=== PATIENT | female | born 1995 | race Caucasian/White ===

== ENCOUNTER 2017-01-25 20:39 | Emergency (ER) | payer OTHER ==
[2017-01-25 20:39] VITALS: BMI 21.0
[2017-01-25 21:01] VITALS: BP 107/62; PULSE 70; RESP 18; TEMP 98.4; O2SAT 97
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
[2017-01-25] MEDS ORDERED: Silver Sulfadiazine 1% Cream (20 gm) ONE (21:34)
[2017-01-25] MEDS ORDERED: Silver Sulfadiazine 1% Cream (20 gm) TOP STA (21:36)
== END 2017-01-25 22:00 | disposition home or self-care (01) ==
LOC: C.ER 20:39
DX: T23.132A Burn of first degree of multiple left fingers (nail), not including thumb, initial encounter (principal); T23.131A Burn of first degree of multiple right fingers (nail), not including thumb, initial encounter; X10.2XXA Contact with fats and cooking oils, initial encounter; Y93.G3 Activity, cooking and baking

== ENCOUNTER 2017-05-18 22:44 | Emergency (ER) | payer OTHER ==
[2017-05-18 22:44] VITALS: BMI 21.0
[2017-05-18 22:57] VITALS: BP 99/74; PULSE 88; RESP 18; TEMP 97.9; O2SAT 99
[2017-05-18 23:37] LABS: RBC URINE 22 /hpf (0-3); URINE BILIRUBIN NEGATIVE (NEGATIVE); URINE BLOOD 2+ (NEGATIVE); URINE COLOR Yellow (YELLOW); URINE GLUCOSE (UA) NORMAL (Normal); URINE KETONE NEGATIVE (NEGATIVE); URINE LEUKOCYTE ESTERASE 2+ Leu/uL (Negative); URINE PROTEIN NEGATIVE (NEGATIVE); URINE UROBILINOGEN NORMAL mg/dL (0.2-1.0); WBC URINE 7 /hpf (0-5)
--- NOTE | 2017-05-18 23:53 | C.PDOC ---
History Of Present Illness 21 yo female c/o vaginal itching and swelling for three days. PT notes she was told to use a suppository to "prevent infection" which she bought at the local drug store. She states she was not having any symptoms at the time though was finishing her menstruation. She used the suppository and shortly after she felt itching and swelling vaginally. (+) sexual active- does not use protection . Received the Depo shot 3+ months ago. Denies fever, rash, dysuria, urinary frequency, vaginal discharge, abdominal pain, sob, difficulty swallowing or h/o STD. Time Seen by Provider: 05/18/17 22:48 Chief Complaint (Nursing): Female Genitourinary History Per: Patient History/Exam Limitations: no limitations Onset/Duration Of Symptoms: Days Current Symptoms Are (Timing): Still Present Past Medical History Vital Signs: Last Vital Signs Temp 97.9 F 05/18/17 22:54 Pulse 88 05/18/17 22:54 Resp 18 05/18/17 22:54 BP 99/74 L 05/18/17 22:54 Pulse Ox 99 05/18/17 23:53 Family History: States: Unknown Family Hx, Diabetes - Social History Hx Tobacco Use: No Hx Alcohol Use: No Hx Substance Use: No - Immunization History Hx Tetanus Toxoid Vaccination: Yes Hx Influenza Vaccination: No Hx Pneumococcal Vaccination: No Review Of Systems Except As Marked, All Systems Reviewed And Found Negative. Genitourinary: Positive for: Vaginal Bleeding Physical Exam - Physical Exam Appears: Well, Non-toxic, No Acute Distress Skin: Normal Color, Warm, Dry Head: Atraumatic, Normacephalic Eye(s): bilateral: Normal Inspection, EOMI Nose: Normal Oral Mucosa: Moist Neck: Normal, Normal ROM, Supple Chest: Symmetrical Respiratory: No Accessory Muscle Use Gastrointestinal/Abdominal: Normal Exam, Soft, No Tenderness Back: Normal Inspection, No CVA Tenderness, No Vertebral Tenderness Pelvic: No Normal External Exam ((+) labia swelling and excoriation, no rash or ulceration), No Vaginal Discharge, No Cervical Motion Tenderness, No Adnexal Tenderness Extremity: Normal ROM Neurological/Psych: Oriented x3, Normal Speech ED Course And Treatment O2 Sat by Pulse Oximetry: 99 Progress Note: Pt treated with Benadryl. Case discussed with Dr Christie, agreed upon plan and treatment. Pt instructed to follow up with [employer] [employer] in 1-2 days. REturn to ER if symtpoms persist or worsen. Disposition - Disposition Disposition: HOME/ ROUTINE Disposition Time: 23:51 Condition: STABLE Additional Instructions: Follow up with your primary medical doctor or clinic in 2-5 days for further evaluation. Take medications as prescribed. Return to the emergency department at any time if symptoms persist or worsen. Prescriptions: Clotrimazole/Betamethasone [Lotrisone] 15 gm EXT BID 5 Days tube DiphenhydrAMINE [Benadryl] 25 mg PO Q6 #20 cap Instructions: General Allergic Reaction (ED) Forms: [employer] (Marshallese) - Clinical Impression Clinical Impression: Vulvitis
== END 2017-05-19 00:02 | disposition home or self-care (01) ==
LOC: C.ER 22:44
DX: N76.2 Acute vulvitis (principal)

== ENCOUNTER 2017-12-11 20:50 | Emergency (ER) | payer SELFPAY ==
[2017-12-11 20:50] VITALS: BMI 21.0
[2017-12-11 20:58] VITALS: O2SAT 98
[2017-12-11 21:47] VITALS: BP 100/68; PULSE 110; RESP 16; TEMP 99.9
--- NOTE | 2017-12-11 21:51 | C.PDOC ---
History Of Present Illness 22 y/o female c/o throat pain and fever x 1 days with ear pain as well. pt sts she swam in [place] recently. no cough. pt not taking analgesics/antipyretics at home. Time Seen by Provider: 12/11/17 21:04 Chief Complaint (Nursing): ENT Problem History Per: Patient History/Exam Limitations: None Onset/Duration Of Symptoms: Days (1) Current Symptoms Are (Timing): Still Present Quality (Mouth/Throat): Tenderness, Redness Symptoms Have Been: Continuous Severity: Moderate Anticoagulant/Antiplatlet Use?: No Past Medical History Reviewed: Historical Data, Nursing Documentation, Vital Signs Vital Signs: Last Vital Signs Temp 99.9 F H 12/11/17 21:42 Pulse 110 H 12/11/17 21:42 Resp 16 12/11/17 21:42 BP 100/68 12/11/17 21:42 Pulse Ox 98 12/11/17 22:00 - Medical History PMH: No Chronic Diseases Family History: States: Unknown Family Hx, Diabetes - Social History Hx Tobacco Use: No Hx Alcohol Use: No Hx Substance Use: No - Immunization History Hx Tetanus Toxoid Vaccination: Yes Hx Influenza Vaccination: No Hx Pneumococcal Vaccination: No Review Of Systems Constitutional: Positive for: Fever, Chills ENT: Positive for: Ear Pain, Mouth Pain, Mouth Swelling Cardiovascular: Negative for: Chest Pain Respiratory: Negative for: Cough Gastrointestinal: Negative for: Vomiting, Abdominal Pain Skin: Negative for: Rash Neurological: Negative for: Weakness, Numbness Physical Exam - Physical Exam Appears: Non-toxic, No Acute Distress Skin: Warm, Dry Head: Atraumatic, Normacephalic Eye(s): bilateral: Normal Inspection Nose: No Discharge Oral Mucosa: Moist Tongue: Normal Appearing, No Swelling Lips: Normal Appearing, No Swelling Throat: Erythema, Exudate (left tonsil), No Drooling Neck: Supple Lymphatic: Adenopathy Chest: No Deformity, No Tenderness Cardiovascular: Rhythm Regular (tachycardic) Respiratory: No Decreased Breath Sounds, No Wheezing Gastrointestinal/Abdominal: Soft, No Tenderness Neurological/Psych: Oriented x3, Normal Speech, Normal Cognition ED Course And Treatment - Laboratory Results Urine POC: Negative O2 Sat by Pulse Oximetry: 98 Medical Decision Making Medical Decision Making: pt with exudative tonsillitis and temp 103, d/c home with zpak Disposition Counseled Patient/Family Regarding: Diagnosis, Need For Followup, Rx Given - Disposition Referrals: Non [facility] Provider, [Primary Care Provider] - Disposition: HOME/ ROUTINE Disposition Time: 21:54 Condition: GOOD Additional Instructions: Drink increased fluids. Gargle with warm salty water several times a day. Tylenol for fever or pain Take antibiotics as prescribed. Prescriptions: Azithromycin [Zithromax] 250 mg PO DAILY #4 tab Instructions: Sore Throat, Adult (DC) Forms: [employer] (Sinhala), Gen Discharge Inst Sinhala Print Language: VIETNAMESE - Clinical Impression Clinical Impression: Exudative tonsillitis
== END 2017-12-11 22:07 | disposition home or self-care (01) ==
LOC: SUPCPDRO 20:50 → C.ER 20:50
DX: J03.90 Acute tonsillitis, unspecified (principal)

== ENCOUNTER 2018-11-02 14:38 | Emergency (ER) | payer SELFPAY ==
[2018-11-02 14:39] VITALS: BMI 21.0
[2018-11-02 14:49] VITALS: BP 110/64; PULSE 66; RESP 18; TEMP 99.1; O2SAT 98
--- NOTE | 2018-11-02 15:26 | C.PDOC ---
History Of Present Illness 23 y/o female pt presents to the ER c/o left ankle pain and swelling for x2 days. Pt reports that she twist her left ankle x2 days ago. Pt denies any weakness, numbness and other associated sx or complaints at this time. Time Seen by Provider: 11/02/18 14:51 Chief Complaint (Nursing): Lower Extremity Problem/Injury History Per: Patient History/Exam Limitations: no limitations Onset/Duration Of Symptoms: Days (x2) Current Symptoms Are (Timing): Still Present Severity: Mild - Hip Description Of Injury: Tripped Past Medical History Reviewed: Historical Data, Nursing Documentation, Vital Signs Vital Signs: Last Vital Signs Temp 99.1 F 11/02/18 14:47 Pulse 66 11/02/18 14:47 Resp 18 11/02/18 14:47 BP 110/64 11/02/18 14:47 Pulse Ox 98 11/02/18 14:47 Primary Care Provider: FAMILY PROVIDER,NO - Medical History PMH: No Chronic Diseases Surgical History: No Surg Hx Family History: States: Unknown Family Hx, Diabetes - Social History Hx Tobacco Use: No Hx Alcohol Use: No Hx Substance Use: No - Immunization History Hx Tetanus Toxoid Vaccination: Yes Hx Influenza Vaccination: No Hx Pneumococcal Vaccination: No Review Of Systems Except As Marked, All Systems Reviewed And Found Negative. Musculoskeletal: Positive for: Other (left ankle pain and swelling ) Physical Exam - Physical Exam Appears: Non-toxic, No Acute Distress Skin: Warm, Dry Head: Normacephalic Eye(s): bilateral: EOMI Extremity: Normal ROM, Capillary Refill <2 Sec, No Deformity, Swelling (L lateral malleolar aspect of the ankle ), Other (ecchymosis on the left lateral malleolar) Extremity: Bilateral: Normal Color And Temperature Pulses: Left Dorsalis Pedis: Normal Neurological/Psych: Oriented x3, Normal Speech, Normal Cognition, Normal Motor, Normal Sensation Gait: Steady ED Course And Treatment O2 Sat by Pulse Oximetry: 98 (RA) Pulse Ox Interpretation: Normal Progress Note: Treated with maia bandage and aircast Reassessment Condition: Improved Medical Decision Making Medical Decision Making: Plans: -- left ankle XR Disposition Counseled Patient/Family Regarding: Studies Performed, Diagnosis, Need For Followup - Disposition Referrals: [facility] [Outside] [facility] [employer] [facility] [Outside] [facility] [place] [Outside] Disposition: HOME/ ROUTINE Disposition Time: 15:30 Condition: GOOD Additional Instructions: Follow up with clinic for further evaluation Air cast, maia bandage Instructions: Ankle Sprain Forms: [employer] (Yoruba), Work Excuse - POA Present On Arrival: None - Clinical Impression Clinical Impression: Ankle sprain - PA / RESIDENTIAL ASSISTANT / Resident Statement MD/ has reviewed & agrees with the documentation as recorded. - Scribe Statement The provider has reviewed the documentation as recorded by the Irma Estrada Do All medical record entries made by the Macrinaibave were at my direction and personally dictated by me. I have reviewed the chart and agree that the record accurately reflects my personal performance of the history, physical exam, medical decision making, and the department course for this patient. I have also personally directed, reviewed, and agree with the discharge instructions and disposition.
--- NOTE | 2018-11-02 16:05 | RAD ---
Left ankle three views History: Trauma. Comparison: None available. Findings: Prominent lateral malleolar soft tissue swelling. No evidence of acute displaced fracture or dislocation. Impression: Prominent lateral malleolar soft tissue swelling. If pain persists, consider correlation with MRI.
== END 2018-11-02 15:35 | disposition home or self-care (01) ==
LOC: C.ER 14:38
DX: S93.402A Sprain of unspecified ligament of left ankle, initial encounter (principal); X50.1XXA Overexertion from prolonged static or awkward postures, initial encounter